=== PATIENT | female | born 1960 | race Caucasian/White ===

== ENCOUNTER 2019-02-04 23:10 | Emergency (ER) | payer BC ==
--- NOTE | 2019-02-04 23:12 | ER Report ---
History and Physical Time Seen By MD: 23:08 HPI/ROS CHIEF COMPLAINT: Migraine headache HISTORY OF PRESENT ILLNESS: 58-year-old female with a migraine headache for over 24 hours. She is up here camping from [facility]. She forgot to bring her on Imitrex 100 mg tablets with her. She just recently received a refill. In alternating ibuprofen and Tylenol every 3 hours to try to alleviate the pain. She's had severe nausea but no vomiting. She has photophobia. She denies fever or stiff neck. Patient recently had surgery and had her parathyroid glands removed. She is wondering if this is contributing to her ongoing pain. REVIEW OF SYSTEMS: Respiratory: No cough, no dyspnea. Cardiovascular: No chest pain, no palpitations. Gastrointestinal: No vomiting, no abdominal pain. Musculoskeletal: No back pain. Allergies: Coded Allergies: No Known Drug Allergies (Unverified , 02/04/19) Home Meds Active Scripts Sumatriptan Succinate (SUMATRIPTAN SUCCINATE) 100 Mg Tablet, 100 MG PO ONCE PRN for migraine headache, #6 Prov:DANNY FERGUSON DO 02/05/19 Reported Medications Sumatriptan Succinate (IMITREX) 100 Mg Tablet, 100 MG PO ONCE PRN for MIGRAINE 02/04/19 Reviewed Nurses Notes: Yes Old Medical Records Reviewed: Yes Constitutional Vital Sign - Last 24 Hours 02/04/19 02/04/19 02/04/19 02/04/19 23:15 23:25 23:30 23:40 Temp 97.9 Pulse 63 68 79 Resp 16 B/P (MAP) 142/76 118/76 (90) Pulse Ox 93 94 96 O2 Delivery Room Air 02/04/19 02/05/19 02/05/19 02/05/19 23:55 00:00 00:05 00:20 Pulse 71 80 76 B/P (MAP) 105/59 (74) Pulse Ox 92 92 93 02/05/19 00:30 B/P (MAP) 102/57 (72) Intake and Output 02/04/19 02/04/19 02/05/19 15:03 23:03 07:03 Intake Total 1000 ml Balance 1000 ml Physical Exam General Appearance: The patient is alert, has no immediate need for airway protection and no current signs of toxicity. Vital signs stable, afebrile, pulse ox normal HEENT: Pupils equal and round no injection. + Photophobia TMs normal, oropharynx without redness or exudate, mucous. Membranes are moist Respiratory: Chest is non tender, lungs are clear to auscultation. Cardiac: regular rate and rhythm Gastrointestinal: Abdomen is soft and non tender, no masses, bowel sounds normal. Musculoskeletal: Neck: Neck is supple and non tender. Extremities have full range of motion and are non tender. Skin: No rashes or lesions. DIFFERENTIAL DIAGNOSIS: After history and physical exam differential diagnosis was considered for headache including but not limited to subarachnoid hemorrhage, migraine headache, tension headache and infectious causes such as meningitis, pharyngitis and sinusitis. Medical Decision Making ED Course/Re-evaluation Clinical Indication for ER IV: Hydration, IV Access ED Course Patient was admitted to an examination room. H&P was done. The differential diagnoses was considered. On clinical examination. Patient has a nonfocal neurologic examination. His clinical presentation of a migraine. Patient has no fever. A peripheral IV is established. Patient's medicated with Zofran, Decadron, Reglan, Benadryl. She still has a residual headache. She's given Toradol 30 mg of morphine 2 mg. On reevaluation an hour and a half. She is feeling much better. She would like to go home. A prescription for Imitrex 100 no gram tablets is provided. She is advised to follow-up with her doctor back in [place]. Upon returning home. Decision to Disposition Date: Feb 05, 2019 Decision to Disposition Time: 00:10 Depart Departure Latest Vital Signs Vital Signs Date Time Temp Pulse Resp B/P (MAP) Pulse Ox O2 Delivery O2 Flow Rate FiO2 02/05/19 00:30 102/57 (72) 02/05/19 00:20 76 93 02/04/19 23:15 97.9 16 Room Air Impression: Primary Impression: Migraine headache Condition: Improved Disposition: HOME OR SELF-CARE New Scripts Sumatriptan Succinate (SUMATRIPTAN SUCCINATE) 100 Mg Tablet 100 MG PO ONCE PRN for migraine headache, #6 Prov: DANTE FERGUSONMariely Stratton DO 02/05/19 Patient Instructions: Migraine Headache (ED) Additional Instructions: Follow-up with your primary care doctor upon returning home if still having persistent migraine Problem Qualifiers Primary Impression: Migraine headache Migraine type: unspecified Status migrainosus presence: without status migrainosus Intractability: intractable Qualified Codes: G43.919 - Migraine, unspecified, intractable, without status migrainosus DANNY FERGUSON DO Feb 04, 2019 23:12
[2019-02-04] MEDS ORDERED: DEXAMETHASONE SOD PHOS 10MG/ML IVP ONE (23:20)
[2019-02-04] MEDS ORDERED: ONDANSETRON 4 MG/2 ML VIAL IVP ONE (23:20)
[2019-02-04] MEDS ORDERED: NS(*) 0.9% 1000 ML BAG 1,000 ML IV ONE (23:20)
[2019-02-04] MEDS ORDERED: diphenhydrAMINE 50 MG/ML VIAL IVP ONE (23:20)
[2019-02-04] MEDS ORDERED: METOCLOPRAMIDE 10 MG/2 ML SDV IVP ONE (23:20)
[2019-02-04] MEDS ORDERED: SUMA100T32 PO (23:22)
[2019-02-05] MEDS ORDERED: MORPHINE 2 MG/ML SYR IVP ONE (00:15)
[2019-02-05] MEDS ORDERED: KETOROLAC 30 MG/ML VIAL IVP ONE (00:15)
[2019-02-05] MEDS ORDERED: SUMA100T33 PO (00:18)
[2019-02-05 00:30] VITALS: BP 102/57
== END 2019-02-05 01:08 | disposition home or self-care (01) ==
LOC: ER 23:27
DX: G43.919 Migraine, unspecified, intractable, without status migrainosus (principal)
CPT/HCPCS: 96361; 96374; 96375; 99284; J1100; J1200; J1885; J2270; J2405; J2765; J7030